=== PATIENT | male | born 1995 | race Caucasian/White ===

== ENCOUNTER 2017-10-14 07:32 | Emergency (ER) | payer OTHER ==
[~2017-10-14] VITALS: Ht 193 cm; Wt 79.4 kg
[2017-10-14 07:34] VITALS: BP 156/97
--- NOTE | 2017-10-14 07:47 | ED GENERAL ADULT ---
See Addendum History of Present Illness General Chief Complaint: Chest Pain Stated Complaint: CHEST PAIN S/P WRESTLING ACCIDENT X2 WEEKS AGO Source: patient Exam Limitations: no limitations Vital Signs & Intake/Output Vital Signs & Intake/Output Vital Signs Date Time Temp Pulse Resp B/P B/P Pulse O2 O2 Flow FiO2 Mean Ox Delivery Rate 10/14 0753 98 10/14 0734 97.4 98 18 156/97 100 Room Air Room Air Allergies Coded Allergies: latex (Intermediate, HIVES FROM POWDER IN THE GLOVES 10/14/17) Reconcile Medications No Known Home Medications Triage Note: PT TO ED S/P "WRESTLING WITH MY FRIEND AND NOW SORE TO LEFT CHEST, NOW FEELS LIKE LEFT RIB AREA PAIN WELL". O2 SATS 100% WHILE TALKING. Triage Nurses Notes Reviewed? yes Onset: Abrupt Duration: week(s): Timing: recent history HPI: 10/14/17 9:26 AM 22-year-old male presents to the emergency department for left anterior chest wall pain and left shoulder pain. He said he was wrestling 2 weeks ago and injured his left shoulder. He denies any abdominal pain. He says that he intermittently has pain to the left chest wall when he moves his left shoulder. He denies any neck pain. He did not have any impact to his abdomen and he was not punched in the abdomen, he did not fall. He denies any past medical history. Past History Travel History Traveled to [place] past 21 day No Medical History Any Pertinent Medical History? see below for history Neurological: NONE EENT: NONE Cardiovascular: NONE Respiratory: NONE Gastrointestinal: NONE Hepatic: NONE Renal: NONE Musculoskeletal: NONE Psychiatric: NONE Endocrine: NONE Blood Disorders: NONE Cancer(s): NONE ACADEMIC SUPPORT DIRECTOR/Reproductive: NONE Surgical History Surgical History: non-contributory Psychosocial History What is your primary language Cuban Tobacco Use: Current Daily Use Daily Tobacco Use Amount/Type: => 5 Cigarettes daily ETOH Use: denies use Illicit Drug Use: denies illicit drug use Family History Hx Contributory? No Review of Systems Review of Systems Constitutional: Denies: fever. EENTM: Reports: no symptoms. Respiratory: Denies: short of breath. Cardiovascular: Reports: see HPI. GI: Denies: abdominal pain, vomiting. Genitourinary: Reports: no symptoms. Musculoskeletal: Reports: see HPI. Skin: Reports: no symptoms. Neurological/Psychological: Reports: no symptoms. Hematologic/Endocrine: Denies: bruising, bleeding. Physical Exam Physical Exam General Appearance: well developed/nourished, alert, awake, anxious, mild distress Head: atraumatic, normal appearance Eyes: Bilateral: normal appearance, PERRL, EOMI. Ears, Nose, Throat: normal ENT inspection Neck: normal inspection, supple, full range of motion Respiratory: normal breath sounds Cardiovascular: regular rate/rhythm, Left anterior chest wall tenderness. Peripheral Pulses: 4+ radial (R), 4+ radial (L) Gastrointestinal: soft, non-tender, hyperactive bowel sounds Back: normal range of motion Extremities: normal inspection Neurologic/Psych: no motor/sensory deficits, awake, alert, oriented x 3 Skin: intact, normal color Core Measures ACS in differential dx? No CVA/TIA Diagnosis: No Sepsis Present: No Sepsis Focused Exam Completed? No Progress Differential Diagnoses I considered the following diagnoses in my evaluation of the patient: [ Costochondritis, hiatal hernia, esophageal reflux, splenic injury, pneumothorax, rib fracture] Plan of Care: Orders Procedure Date/time Status EKG 10/14 736 Active Chest x-ray negative for pneumothorax or rib fracture. Left shoulder x-ray normal. Left upper quadrant ultrasound shown below PATIENT: JON HUGGINS PRESENT AGE: 22 PATIENT ACCOUNT NO: [id number] : 96 LOCATION: [facility] ORDERING PHYSICIAN: Gregorio Hurtado DO SERVICE DATE: 10/14/171006 EXAM TYPE: US - US-SPLEEN EXAMINATION: US SPLEEN CLINICAL INFORMATION: Left-sided shoulder and chest pain. Possible splenic hematoma after recent wrestling injury. COMPARISON: None TECHNIQUE: Sonographic imaging of the left upper quadrant focused on the spleen was performed using a curved 5 MHz transducer. FINDINGS: Spleen has normal size, contour and echotexture; it measures up to 10 cm maximum dimension. An adjacent splenule measures up to 1.8 cm. No perisplenic fluid collection/hematoma. The visualized portion of the left kidney is normal. IMPRESSION: - The spleen is normal. - No evidence of splenic laceration or perisplenic hematoma. DICTATED BY: Janes Cesar MD DATE/TIME DICTATED:10/14/171049 WATCHMAKING TEACHER:ISAIAS DATE/TIME TRANSCRIBED:05/16/18 / 1050 CONFIDENTIAL, DO NOT COPY WITHOUT APPROPRIATE AUTHORIZATION. <Electronically signed in Other Vendor System> SIGNED BY: Janes Cesar MD 10/14/171056 Initial ED EKG: NSR Departure Departure Disposition: HOME OR SELF CARE Condition: Stable Clinical Impression Primary Impression: Costochondritis Referrals: Christian Aleman APRN (PCP/Family) Departure Forms: Customer Survey General Discharge Information Prescriptions: Current Visit Scripts No Known Home Medications Comments The patient was instructed to take Tylenol as needed for pain. Avoid wrestling for the next 2 weeks. Follow-up with his doctor next week. Critical Care Note Critical Care Note Critical Care Time: non-applicable
--- NOTE | 2017-10-14 08:37 | RADIOLOGY REPORT ---
EXAMINATION: XR SHOULDER, LEFT XR CHEST CLINICAL INFORMATION: Left shoulder pain and left chest wall pain COMPARISON: None TECHNIQUE: AP external rotation, Grashey, scapular Y, and axillary views of the left shoulder. PA and lateral views of the chest FINDINGS: LEFT SHOULDER: Alignment is normal. Bones, joints and soft tissues have a normal appearance. No fracture, subluxation or calcific tendinopathy. CHEST: Lungs are well expanded and clear. No consolidation, pneumothorax or pleural effusion. Cardiomediastinal silhouette and pulmonary benja are unremarkable. The visualized bones are intact. No evidence of left rib fracture. IMPRESSION: Normal left shoulder. Normal chest.
--- NOTE | 2017-10-14 10:57 | ULTRASOUND REPORT ---
EXAMINATION: US SPLEEN CLINICAL INFORMATION: Left-sided shoulder and chest pain. Possible splenic hematoma after recent wrestling injury. COMPARISON: None TECHNIQUE: Sonographic imaging of the left upper quadrant focused on the spleen was performed using a curved 5 MHz transducer. FINDINGS: Spleen has normal size, contour and echotexture; it measures up to 10 cm maximum dimension. An adjacent splenule measures up to 1.8 cm. No perisplenic fluid collection/hematoma. The visualized portion of the left kidney is normal. IMPRESSION: - The spleen is normal. - No evidence of splenic laceration or perisplenic hematoma.
== END 2017-10-14 11:30 ==
LOC: ERH 07:32
DX: M94.0 Chondrocostal junction syndrome [Tietze] (principal); R07.89 Other chest pain
CPT/HCPCS: 71046; 73030-LT; 93005; 93010